=== PATIENT | female | born 1985 | race Hispanic/Latino ===

== ENCOUNTER 2018-11-04 20:06 | Emergency (ER) | payer SELFPAY ==
[2018-11-04] MEDS ORDERED: DEXAMETHASONE 10 MG/ML VIAL ONE (20:24)
[2018-11-04] MEDS ORDERED: FAMOTIDINE 20 MG/2 ML VIAL IV ONE (20:25)
[2018-11-04] MEDS ORDERED: EPINEPHRINE/PF 1 MG/ML AMP ONE (20:25)
[2018-11-04] MEDS ORDERED: NA CHLORIDE 0.9% 250 ML ONE (20:25)
[2018-11-04] MEDS ORDERED: DIPHENHYDRAMINE 50 MG/ML VIAL ONE (20:25)
[2018-11-04] MEDS ORDERED: NA CHLORIDE 0.9% 1,000 ML ONE (20:37)
--- NOTE | 2018-11-04 21:06 | EDPHYS ---
Physician Documentation [facility] Name: Selin Lopez Age: 33 yrs Sex: Female : 1985 Arrival Date: 11/04/2018 Time: 20:07 Bed 4 Private MD: ED Physician Harpreet Bobby HPI: 11/04 20:57 This 33 yrs old Female presents to ER via EMS with complaints of swelling, vomiting wa [place] beach. 20:57 The patient presents with localized swelling, shortness of breath, vomiting, facial wa swelling. Onset: The symptoms/episode began/occurred just prior to arrival. Associated signs and symptoms: Pertinent positives: shortness of breath, swelling, vomiting, Pertinent negatives: abdominal pain. Possible causes: sting [place] the beach. possible by jellyfish. At home the patient or guardian has treated the symptoms with nothing. Severity of symptoms: At their worst the symptoms were moderate in the emergency department the symptoms have improved. The patient has not experienced similar symptoms in the past. The patient has not recently seen a physician. 33 yo F bit on the L arm by possible jelly fish at the beach. denies itching but states became SOB, noted redness, swelling at the arm and face. per EMS, tachycardic at their arrival but sats 99% with nml BP. 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 - Social history:: Smoking status: Patient/guardian denies using tobacco, Patient/guardian denies using alcohol, street drugs. - Ebola Screening: : Patient negative for fever greater than or equal to 101.5 degrees Fahrenheit, and additional compatible Ebola Virus Disease symptoms Patient denies exposure to infectious person Patient denies travel to an Ebola-affected area in the 21 days before illness onset. - Family history:: not pertinent. - Hospitalizations: : No recent hospitalization is reported. ROS: 21:00 Constitutional: Negative for fever, chills, and weight loss, ENT: Negative for injury, wa pain, and discharge, Neck: Negative for injury, pain, and swelling, Cardiovascular: Negative for chest pain, palpitations, and edema, Abdomen/GI: Negative for abdominal pain, nausea, vomiting, diarrhea, and constipation, Back: Negative for injury and pain, : Negative for injury, bleeding, discharge, and swelling, MS/Extremity: Negative for injury and deformity, Neuro: Negative for headache, weakness, numbness, tingling, and seizure, Psych: Negative for depression, anxiety, suicide ideation, homicidal ideation, and hallucinations. 21:00 Eyes: Positive for swelling, redness. 21:00 Respiratory: Positive for shortness of breath. 21:00 Skin: Positive for erythema, swelling. 21:00 All other systems are negative. Exam: 21:01 ENT: Nares patent. No nasal discharge, no septal abnormalities noted. Tympanic wa membranes are normal and external auditory canals are clear. Oropharynx with no redness, swelling, or masses, exudates, or evidence of obstruction, uvula midline. Mucous membranes moist. Neck: Trachea midline, no thyromegaly or masses palpated, and no cervical lymphadenopathy. Supple, full range of motion without nuchal rigidity, or vertebral point tenderness. No Meningismus. Chest/axilla: Normal chest wall appearance and motion. Nontender with no deformity. No lesions are appreciated. Cardiovascular: Regular rate and rhythm with a normal S1 and S2. No gallops, murmurs, or rubs. Normal PMI, no JVD. No pulse deficits. Abdomen/GI: Soft, non-tender, with normal bowel sounds. No distension or tympany. No guarding or rebound. No evidence of tenderness throughout. Back: No spinal tenderness. No costovertebral tenderness. Full range of motion. MS/ Extremity: Pulses equal, no cyanosis. Neurovascular intact. Full, normal range of motion. Neuro: Awake and alert, GCS 15, oriented to person, place, time, and situation. Cranial nerves II-XII grossly intact. Motor strength 5/5 in all extremities. Sensory grossly intact. Cerebellar exam normal. Normal gait. Psych: Awake, alert, with orientation to person, place and time. Behavior, mood, and affect are within normal limits. 21:01 Constitutional: The patient appears in no acute distress, alert. 21:01 Head/face: Noted is erythema, that is moderate, of the diffuse face, swelling, that is mild. 21:01 Respiratory: the patient does not display signs of respiratory distress, Respirations: normal, Breath sounds: are clear throughout, Respiratory rate: normal 21:01 Skin: noted diffuse swelling with erythema L forearm. no tender. Vital Signs: 19:55 BP 168 / 87; Pulse 101; Resp 22; Temp 98.4(O); Pulse Ox 100% on R/A; Weight 62.6 kg fc (R); Height 5 ft. 1 in. (155 cm) (R); Pain 0/10; 20:37 BP 136 / 74; Pulse 111; Resp 18; Pulse Ox 100% on R/A; ea 21:00 BP 128 / 74; Pulse 90; Resp 18; Temp 98.2; Pulse Ox 99% ; ea 19:55 Body Mass Index 26.05 (62.60 kg, 155 cm) MDM: 20:13 Patient medically screened. wa 21:03 Differential diagnosis: anaphylaxis, angioedema, urticaria, allergic reaction to sting. wa will treat symptoms and reassess. Data reviewed: vital signs, nurses notes. Response to treatment: the patient's symptoms have markedly improved after treatment. ED course: vital wnl at d/c. redness and swelling in face resolved. mild erythema L forearm. states feels much better. will d/c with meds. 11/04 20:20 Order name: IV Saline Lock; Complete Time: : pa 11/04 20:20 Order name: Cardiac monitoring; Complete Time: : pa Administered Medications: 20:22 Drug: EPINEPHrine 1mg/mL 1:1,000 0.3 ml Route: Sub-Q; Site: right upper arm; la1 21:00 Follow up: Response: No adverse reaction; Marked relief of symptoms ea 20:23 Drug: Benadryl 12.5 mg Route: IVP; Site: right antecubital; la1 21:00 Follow up: Response: No adverse reaction; Marked relief of symptoms ea 20:23 Drug: Pepcid 20 mg Route: IVP; Site: right antecubital; la1 21:00 Follow up: Response: No adverse reaction ea 20:24 Drug: NS 0.9% 1000 ml Route: IV; Rate: 1 bolus; Site: right antecubital; la1 21:00 Follow up: Response: No adverse reaction; IV Status: Completed infusion; IV Intake: ea 1000ml 20:24 Drug: Decadron - Dexamethasone 10 mg Route: IVP; Site: right antecubital; la1 21:00 Follow up: Response: No adverse reaction; Marked relief of symptoms ea Disposition: 11/04/18 21:06 Discharged to Home. Impression: Acute allergic reaction to sea creature sting. - Condition is Stable. - Discharge Instructions: Bee, Wasp, or Hornet Sting, Adult. - Prescriptions for Prednisone 20 mg Oral Tablet - take 2 tablets by ORAL route once daily for 4 days; 8 tablet. - Medication Reconciliation Form, Thank You Letter, Antibiotic Education, Prescription Opioid Use form. - Follow up: Private Physician; When: 2 - 3 days; Reason: Re-evaluation by your physician. - Problem is new. - Symptoms have improved. - Notes: take medication as prescribed. return to ER imeediately for any reoccurrence in your symptoms Signatures: Ericka Ngo RN COBY Mirza Hennessy RN RN la Lissy Rashid RN RN [facility] Hospital[facility]arp[facility] MD MD wa Corrections: (The following items were deleted from the chart) 21:17 21:06 11/04/2018 21:06 Discharged to Home. Impression: Acute allergic reaction to sea ea creature sting. Condition is Stable. Forms are Medication Reconciliation Form, Thank You Letter, Antibiotic Education, Prescription Opioid Use. Follow up: Private Physician; When: 2 - 3 days; Reason: Re-evaluation by your physician. Problem is new. Symptoms have improved. wa
--- NOTE | 2018-11-04 21:06 | ER ---
Nurse's Notes [facility] Name: Selin Lopez Age: 33 yrs Sex: Female : 1985 Arrival Date: 11/04/2018 Time: 20:07 Bed 4 Private MD: Diagnosis: Acute allergic reaction to sea creature sting Presentation: 11/04 19:55 Presenting complaint: EMS states: that pt was bitten or stung by something to left fc forearm and then shortly after that she started to have swelling to face along with shortness of breath. Pt did vomit large amts at scene. Transition of care: patient was not received from another setting of care. Onset of symptoms was November 04, 2018 at 19:15. Risk Assessment: Do you want to hurt yourself or someone else? Patient reports no desire to harm self or others. Initial Sepsis Screen: Does the patient meet any 2 criteria? HR > 90 bpm. Yes Does the patient have a suspected source of infection? No. Patient's initial sepsis screen is negative. Care prior to arrival: None. 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 - Social history:: Smoking status: Patient/guardian denies using tobacco, Patient/guardian denies using alcohol, street drugs. - Ebola Screening: : Patient negative for fever greater than or equal to 101.5 degrees Fahrenheit, and additional compatible Ebola Virus Disease symptoms Patient denies exposure to infectious person Patient denies travel to an Ebola-affected area in the 21 days before illness onset. - Family history:: not pertinent. - Hospitalizations: : No recent hospitalization is reported. Screenin:16 Abuse screen: Denies threats or abuse. Nutritional screening: No deficits noted. fc Tuberculosis screening: No symptoms or risk factors identified. Fall Risk None identified. Assessment: 20:24 General: Appears in no apparent distress. Behavior is calm, cooperative. Pain: Denies la1 pain. Neuro: Level of Consciousness is awake, alert, obeys commands, Oriented to person, place, time, situation. Cardiovascular: Heart tones S1 S2 present Capillary refill < 3 seconds Patient's skin is warm and dry. Respiratory: Airway is patent Respiratory effort is even, unlabored, Respiratory pattern is regular, symmetrical, Breath sounds are clear bilaterally. GI: No signs and/or symptoms were reported involving the gastrointestinal system. : No signs and/or symptoms were reported regarding the genitourinary system. EENT: facial swelling noted, airway patent, pt frequently clearing throat in room. . 20:37 Reassessment: Patient and/or family updated on plan of care and expected duration. Pain ea level reassessed. Patient is alert, oriented x 3, equal unlabored respirations, skin warm/dry/pink. 21:14 Reassessment: Patient and/or family updated on plan of care and expected duration. Pain ea level reassessed. Patient is alert, oriented x 3, equal unlabored respirations, skin warm/dry/pink. Discharge instruction given to patient, verbalized the understanding of instruction. No s/s of pain or discomfort noted at this time. Patient states feeling better. Vital Signs: 19:55 BP 168 / 87; Pulse 101; Resp 22; Temp 98.4(O); Pulse Ox 100% on R/A; Weight 62.6 kg fc (R); Height 5 ft. 1 in. (155 cm) (R); Pain 0/10; 20:37 BP 136 / 74; Pulse 111; Resp 18; Pulse Ox 100% on R/A; ea 21:00 BP 128 / 74; Pulse 90; Resp 18; Temp 98.2; Pulse Ox 99% ; ea 19:55 Body Mass Index 26.05 (62.60 kg, 155 cm) ED Course: 19:55 Arm band placed on Patient placed in an exam room, on a stretcher. fc 19:57 Inserted saline lock: 20 gauge in right antecubital area, using aseptic technique. fc ,using aseptic technique. per Mirza TENORIO. 20:07 Patient arrived in ED. la1 20:13 Harpreet Bobby MD is Attending Physician. wa 20:15 Triage completed. fc 20:16 Patient has correct armband on for positive identification. Bed in low position. Call light in reach. Side rails up X2. panel monitor on. Pulse ox on. NIBP on. 20:22 Mirza Hennessy, RN is Primary Nurse. la1 21:10 IV discontinued, intact, bleeding controlled, No redness/swelling at site. Pressure ea dressing applied. 21:17 No provider procedures requiring assistance completed. ea Administered Medications: 20:22 Drug: EPINEPHrine 1mg/mL 1:1,000 0.3 ml Route: Sub-Q; Site: right upper arm; la1 21:00 Follow up: Response: No adverse reaction; Marked relief of symptoms ea 20:23 Drug: Benadryl 12.5 mg Route: IVP; Site: right antecubital; la1 21:00 Follow up: Response: No adverse reaction; Marked relief of symptoms ea 20:23 Drug: Pepcid 20 mg Route: IVP; Site: right antecubital; la1 21:00 Follow up: Response: No adverse reaction ea 20:24 Drug: NS 0.9% 1000 ml Route: IV; Rate: 1 bolus; Site: right antecubital; la1 21:00 Follow up: Response: No adverse reaction; IV Status: Completed infusion; IV Intake: ea 1000ml 20:24 Drug: Decadron - Dexamethasone 10 mg Route: IVP; Site: right antecubital; la1 21:00 Follow up: Response: No adverse reaction; Marked relief of symptoms ea Intake: 21:00 IV: 1000ml; Total: 1000ml. ea Outcome: 21:06 Discharge ordered by . wa 21:16 Discharged to home ambulatory, with family. ea 21:16 Condition: improved 21:16 Discharge instructions given to patient, Instructed on discharge instructions, follow up and referral plans. medication usage, Demonstrated understanding of instructions, follow-up care, medications, Prescriptions given X 1. 21:17 Patient left the ED. ea Signatures: Ericka Ngo RN RN Mirza Hennessy RN RN [facility] Lissy Rashid RN RN ea [place], William, MD MD wa
== END 2018-11-04 21:17 | disposition home or self-care (01) ==
LOC: ER 20:06
DX: T63.691A Toxic effect of contact with other venomous marine animals, accidental (unintentional), initial encounter (principal); Y92.832 Beach as the place of occurrence of the external cause
CPT/HCPCS: 96361; 96372; 96374; 96375; 99284; J0171; J1100; J7030